=== PATIENT | female | born 1950 ===

== ENCOUNTER → 2017-09-26 | Outpatient (CLI) | payer MEDICARE, OTHER ==
--- NOTE | 2017-09-26 15:11 | WOMENS IMAGING REPORT ---
EXAM DESCRIPTION: 3D DX MAMMO BILAT; U/S BREAST UNILAT LIMITED COMPLETED DATE/TIME: 09/26/2017 11:48 am; 09/26/2017 11:46 am REASON FOR STUDY: N63.20 N63.20 UNSPECIFIED LUMP IN THE LEFT BREAST, UNSPECIFIED QUAD COMPARISON: None. TECHNIQUE: Standard craniocaudal and mediolateral oblique views of each breast recorded using digita l acquisition and breast tomosynthesis. Additional left breast tomosynthesis in the 90 mediolateral and exaggerated craniocaudad orientation s. Left breast ultrasound was also performed. LIMITATIONS: None. FINDINGS: The patient is post bilateral skin sparing mastectomies with reconstruction, bilateral ret ropectoral breast implants are present. Patient presents with a palpable nodule left breast 1 to 2 o 'clock position upper outer quadrant. RIGHT BREAST MASSES: No suspicious masses. CALCIFICATIONS: No new or suspicious calcifications. ARCHITECTURAL DISTORTION: None. DEVELOPING DENSITY: None. ASYMMETRY: None noted. OTHER: Intact right retropectoral breast implant. LEFT BREAST MASSES: No suspicious masses. CALCIFICATIONS: Faint curvilinear calcification, coarse dense and benign in appearance along the supe rficial surface of the implant, left upper outer quadrant. ARCHITECTURAL DISTORTION: None. DEVELOPING DENSITY: None. ASYMMETRY: None noted. OTHER: Intact left retropectoral breast implant. Read with the assistance of CAD: .[facility] R2 Cenova Version 1.3 .[facility] - R2 Cenova Version 1.3 .[facility] - R2 Cenova Version 2.4 .[facility] R2 Cenova Version 2.4 .[facility] - R2 Group Leader Version 9.2 Left breast ultrasound: Ultrasound of the left breast was performed. Patient indicates a palpable abnormality in 1 to 2 o'cl ock position along the surface of the implant. Ultrasound of this area was performed, and a small hy poechoic solid nodule is present with peripheral rim calcification along its surface. No internal co darleen flow. Well-circumscribed margins. This most likely represents fibrosis or scar tissue along the superficial surface of the implant. This correlates with the curvilinear calcification on mammogram s and is a benign finding. IMPRESSION: No mammographic/ tomosynthesis evidence for malignancy right breast. No mammographic/tomosynthesis or ultrasound evidence for malignancy left breast. BREAST DENSITY: a. The breasts are almost entirely fatty. BIRAD: 2 Benign findings. RECOMMENDATION: RECOMMENDED FOLLOW UP: Please continue yearly bilateral screening tomosynthesis SPECIFIC INTERVENTION/IMAGING/CONSULTATION RECOMMENDED:No additional intervention/ imaging/consultati on needed at this time. COMMUNICATION:Patient notified by letter. Patient's surgeries and prior mammograms are in [place], about 10 years old. If any of these images become available for comparison, an addendum to this report can be generated. COMMENT: The patient has been notified of the results by letter per [place] requirements. Additional no tification policies are in place for contacting patient with suspicious or incomplete findings. Quality ID #[id number]: The [employer] recommends an annual screening mammogram for women aged 40 years or over. This facility utilizes a reminder system to ensure that all patients receive reminder letters, and/or direct phone calls for appointments. This includes reminders for routine scr eening mammograms, diagnostic mammograms, or other Breast Imaging Interventions when appropriate. Th is patient will be placed in the appropriate reminder system. The [employer] (ACR) has developed recommendations for screening MRI of the breast s in certain patient populations, to be used in conjunction with mammography. Breast MRI surveillanc e may be appropriate for women with more than 20% lifetime risk of developing breast cancer as deter mined by genetic testing, significant family history of the disease, or history of mantle radiation f or Hodgkins Disease. ACR Practice Guidelines 2008. DBT Technology DBT is a type of tomographic mammography. With conventional mammography, overlapping breast tissue ma y make lesions difficult to detect, even with good compression. DBT uses an x-ray tube that rotates a round the breast, taking images at different angles. These images are then combined to create thin sl ices of the breast that the radiologist can view as a 3D reconstruction. The [employer] unit can perform full-field digital mammograms (2D imaging); or DBT (3D imaging); or both, in a combination mode that quickly performs both the mammogram and the tomosynthesis scan while the breast is still compressed. PQRS 6045F: Fluoroscopic imaging is not utilized for breast tomosynthesis. TECHNICAL DOCUMENTATION: FINDING NUMBER: (1) ASSESSMENT: (1) JOB ID: [id number]- All Rights Reserved Reading location - IP/workstation name: [email or web address] [id number]
--- NOTE | 2017-09-26 15:11 | WOMENS IMAGING REPORT ---
EXAM DESCRIPTION: 3D DX MAMMO BILAT; U/S BREAST UNILAT LIMITED COMPLETED DATE/TIME: 09/26/2017 11:48 am; 09/26/2017 11:46 am REASON FOR STUDY: N63.20 N63.20 UNSPECIFIED LUMP IN THE LEFT BREAST, UNSPECIFIED QUAD COMPARISON: None. TECHNIQUE: Standard craniocaudal and mediolateral oblique views of each breast recorded using digita l acquisition and breast tomosynthesis. Additional left breast tomosynthesis in the 90 mediolateral and exaggerated craniocaudad orientation s. Left breast ultrasound was also performed. LIMITATIONS: None. FINDINGS: The patient is post bilateral skin sparing mastectomies with reconstruction, bilateral ret ropectoral breast implants are present. Patient presents with a palpable nodule left breast 1 to 2 o 'clock position upper outer quadrant. RIGHT BREAST MASSES: No suspicious masses. CALCIFICATIONS: No new or suspicious calcifications. ARCHITECTURAL DISTORTION: None. DEVELOPING DENSITY: None. ASYMMETRY: None noted. OTHER: Intact right retropectoral breast implant. LEFT BREAST MASSES: No suspicious masses. CALCIFICATIONS: Faint curvilinear calcification, coarse dense and benign in appearance along the supe rficial surface of the implant, left upper outer quadrant. ARCHITECTURAL DISTORTION: None. DEVELOPING DENSITY: None. ASYMMETRY: None noted. OTHER: Intact left retropectoral breast implant. Read with the assistance of CAD: .[facility] R[facility] Cenova Version 1.3 .[facility] Imaging - R2 Cenova Version 1.3 .[facility] Imaging - R2 Cenova Version 2.4 .[facility] [place] R2 Cenova Version 2.4 .[facility] - R2 [employer] Version 9.2 Left breast ultrasound: Ultrasound of the left breast was performed. Patient indicates a palpable abnormality in 1 to 2 o'cl ock position along the surface of the implant. Ultrasound of this area was performed, and a small hy poechoic solid nodule is present with peripheral rim calcification along its surface. No internal co darleen flow. Well-circumscribed margins. This most likely represents fibrosis or scar tissue along the superficial surface of the implant. This correlates with the curvilinear calcification on mammogram s and is a benign finding. IMPRESSION: No mammographic/ tomosynthesis evidence for malignancy right breast. No mammographic/tomosynthesis or ultrasound evidence for malignancy left breast. BREAST DENSITY: a. The breasts are almost entirely fatty. BIRAD: 2 Benign findings. RECOMMENDATION: RECOMMENDED FOLLOW UP: Please continue yearly bilateral screening tomosynthesis SPECIFIC INTERVENTION/IMAGING/CONSULTATION RECOMMENDED:No additional intervention/ imaging/consultati on needed at this time. COMMUNICATION:Patient notified by letter. Patient's surgeries and prior mammograms are in [place], about 10 years old. If any of these images become available for comparison, an addendum to this report can be generated. COMMENT: The patient has been notified of the results by letter per [place] requirements. Additional no tification policies are in place for contacting patient with suspicious or incomplete findings. Quality ID #[id number]: The [employer] recommends an annual screening mammogram for women aged 40 years or over. This facility utilizes a reminder system to ensure that all patients receive reminder letters, and/or direct phone calls for appointments. This includes reminders for routine scr eening mammograms, diagnostic mammograms, or other Breast Imaging Interventions when appropriate. Th is patient will be placed in the appropriate reminder system. The [employer] (ACR) has developed recommendations for screening MRI of the breast s in certain patient populations, to be used in conjunction with mammography. Breast MRI surveillanc e may be appropriate for women with more than 20% lifetime risk of developing breast cancer as deter mined by genetic testing, significant family history of the disease, or history of mantle radiation f or Hodgkins Disease. ACR Practice Guidelines 2008. DBT Technology DBT is a type of tomographic mammography. With conventional mammography, overlapping breast tissue ma y make lesions difficult to detect, even with good compression. DBT uses an x-ray tube that rotates a round the breast, taking images at different angles. These images are then combined to create thin sl ices of the breast that the radiologist can view as a 3D reconstruction. The [employer] unit can perform full-field digital mammograms (2D imaging); or DBT (3D imaging); or both, in a combination mode that quickly performs both the mammogram and the tomosynthesis scan while the breast is still compressed. PQRS 6045F: Fluoroscopic imaging is not utilized for breast tomosynthesis. TECHNICAL DOCUMENTATION: FINDING NUMBER: (1) ASSESSMENT: (1) JOB ID: [id number] [email or web address]- All Rights Reserved Reading location - IP/workstation name: [email or web address] [id number]
== END ==
LOC: WI 10:43
PROVIDERS: ATTEND Physician Assistant
DX: N63.21 Unspecified lump in the left breast, upper outer quadrant (principal); Z98.82 Breast implant status
CPT/HCPCS: 76642; 77066; G0279; 77062